=== PATIENT | female | born 1990 | race Caucasian/White ===

== ENCOUNTER 2018-08-29 19:06 | Emergency (ER) | payer OTHER ==
[~2018-08-29] VITALS: Ht 167.6 cm; Wt 86.2 kg
[2018-08-29] MEDS ORDERED: Xanax0.5 MG PO (20:06)
== END 2018-08-29 20:17 | disposition home or self-care (01) ==
LOC: ER 19:06
DX: F41.9 Anxiety disorder, unspecified (principal)
CPT/HCPCS: 99282

== ENCOUNTER 2019-05-08 15:29 | Emergency (ER) | payer OTHER ==
[~2019-05-08] VITALS: Ht 167.6 cm; Wt 90.7 kg
[~2019-05-08 15:29] MED LIST: Xanax0.5 MG PO
[2019-05-08] MEDS ORDERED: IBUP800 PO (16:12)
[2019-05-08] MEDS ORDERED: Robaxin-750750 MG PO (16:12)
[2019-05-08] MEDS ORDERED: LIDO700A20 TOP (16:12)
== END 2019-05-08 16:14 | disposition home or self-care (01) ==
LOC: ER 15:29
DX: G89.29 Other chronic pain (principal); M54.5 Low back pain; F17.200 Nicotine dependence, unspecified, uncomplicated
CPT/HCPCS: 99283

== ENCOUNTER 2020-03-27 10:33 | Emergency (ER) | payer OTHER ==
[~2020-03-27] VITALS: Ht 167.6 cm; Wt 108.9 kg
[~2020-03-27 10:33] MED LIST changes: +IBUP800 PO; +LIDO700A20 TOP; +Robaxin-750750 MG PO
== END 2020-03-27 13:57 | disposition left against medical advice (07) ==
LOC: ER 10:33
DX: Z53.21 Procedure and treatment not carried out due to patient leaving prior to being seen by health care provider (principal)

== ENCOUNTER → 2021-07-03 | Outpatient (CLI) | payer OTHER ==
[2021-07-05 14:11] LABS: HPV 16 Negative (Negative); HPV 18 Negative (Negative); HPV OTHER HR TYPES Negative (Negative)
== END ==
LOC: LAB SHORT 19:10 → LAB 19:10
PROVIDERS: Family Medicine
DX: Z01.419 Encounter for gynecological examination (general) (routine) without abnormal findings (principal)
CPT/HCPCS: 87624; G0123

== ENCOUNTER → 2022-04-30 | Outpatient (CLI) | payer OTHER | END | disposition home or self-care (01) | LOC: LAB SHORT 16:28 | DX: Z34.83 Encounter for supervision of other normal pregnancy, third trimester (principal); Z3A.36 36 weeks gestation of pregnancy | CPT/HCPCS: 87081; 87150 ==

== ENCOUNTER 2023-07-06 17:51 | Inpatient (IN) | payer OTHER ==
[~2023-07-06] VITALS: Ht 167.6 cm; Wt 131.8 kg
[2023-07-06] VITALS (10 sets, daily range): BP systolic 95–131; BP diastolic 46–87
[~2023-07-06 17:51] MED LIST changes: +Colace100 MG PO; +FAMO20 PO; +PRENATAL TABLE1 EAC2 PO; +UNISOM SLEEPMIN25 MG PO
[2023-07-06 18:52] LABS: Source, Urine Voided
[2023-07-06 19:00] LABS: BASOPHILS ABSOLUTE AUTO 0.04 K/mm3 (0.00-0.23); BASOPHILS PERCENT AUTO 0 % (0-2); EOSINOPHILS PERCENT AUTO 1 % (0-6); Hematocrit 37.3 % (33.0-51.0); Hemoglobin 12.6 g/dL (11.5-16.0); IMMATURE GRAN ABSOLUTE AUTO 0.08 K/mm3 (0.00-0.10); IMMATURE GRAN PERCENT AUTO 0 % (0-1); LYMPHOCYTES ABSOLUTE AUTO 2.43 K/mm3 (0.84-5.20); LYMPHOCYTES PERCENT AUTO 13 % (21-46); MONOCYTES ABSOLUTE AUTO 1.05 K/mm3 (0.16-1.47); MONOCYTES PERCENT AUTO 6 % (4-13); Mean Corpuscular HGB 27.8 pg (26.0-34.0); Mean Corpuscular HGB Conc 33.8 g/dL (31.5-36.5); Mean Corpuscular Volume 82 fL (80-100); Mean Platelet Volume 11.7 fL (9.1-12.4); NEUTROPHILS ABSOLUTE AUTO 14.37 K/mm3 (1.96-9.15); NEUTROPHILS PERCENT AUTO 80 % (41-73); Platelet Count 256 K/mm3 (150-400); RDW Coefficient Variation 13.3 % (11.7-14.2); RDW Standard Deviation 39.5 fL (35.1-46.3); Red Blood Cell Count 4.54 M/mm3 (3.80-5.20); White Blood Cell Count 18.07 K/mm3 (4.00-11.30)
[2023-07-06 19:01] LABS: Appearance, Urine Cloudy (Clear); Bilirubin, Urine Neg (Neg); Blood, Urine 5+ (Neg); Color, Urine Yellow (P-Yellow); Glucose Qualitative, Urine Neg (Neg); Ketones, Urine Neg (Neg); Leukocyte Esterase, Urine Neg (Neg); Nitrite, Urine Neg (Neg); Protein, Urine 3+ (Neg); Specific Gravity, Urine 1.025 (1.003-1.022); Urobilinogen, Urine NORM (Normal)
[2023-07-06 19:15] LABS: Bacteria Many /hpf; Mucus Light (0-Heavy); Red Blood Cells, Urine 25-50 /hpf (0-2); Squamous Epithelial Cells Mod /hpf (Few)
[2023-07-06 21:09] LABS: BASOPHILS ABSOLUTE AUTO 0.03 K/mm3 (0.00-0.23); BASOPHILS PERCENT AUTO 0 % (0-2); EOSINOPHILS ABSOLUTE AUTO 0.08 K/mm3 (0.00-0.68); EOSINOPHILS PERCENT AUTO 0 % (0-6); Hematocrit 36.4 % (33.0-51.0); Hemoglobin 12.1 g/dL (11.5-16.0); IMMATURE GRAN ABSOLUTE AUTO 0.09 K/mm3 (0.00-0.10); IMMATURE GRAN PERCENT AUTO 1 % (0-1); LYMPHOCYTES ABSOLUTE AUTO 2.91 K/mm3 (0.84-5.20); LYMPHOCYTES PERCENT AUTO 16 % (21-46); MONOCYTES ABSOLUTE AUTO 1.14 K/mm3 (0.16-1.47); MONOCYTES PERCENT AUTO 6 % (4-13); Mean Corpuscular HGB 27.8 pg (26.0-34.0); Mean Corpuscular HGB Conc 33.2 g/dL (31.5-36.5); Mean Corpuscular Volume 84 fL (80-100); Mean Platelet Volume 11.5 fL (9.1-12.4); NEUTROPHILS ABSOLUTE AUTO 13.81 K/mm3 (1.96-9.15); NEUTROPHILS PERCENT AUTO 77 % (41-73); Platelet Count 253 K/mm3 (150-400); RDW Coefficient Variation 13.3 % (11.7-14.2); RDW Standard Deviation 40.7 fL (35.1-46.3); Red Blood Cell Count 4.35 M/mm3 (3.80-5.20); White Blood Cell Count 18.06 K/mm3 (4.00-11.30)
--- NOTE | 2023-07-06 21:16 | NUR ---
07/06/232115 Carley Contreras PATIENT ARRIVED TO OR WITH GANNON CATHETER IN PLACE.
[2023-07-06 21:41] LABS: PCO2 Cord - Arterial 52.6 mmHg (40-50); pH Cord - Arterial 7.32 (7.28-7.35)
[2023-07-06 22:46] LABS: BASOPHILS ABSOLUTE AUTO 0.03 K/mm3 (0.00-0.23); BASOPHILS PERCENT AUTO 0 % (0-2); EOSINOPHILS ABSOLUTE AUTO 0.05 K/mm3 (0.00-0.68); EOSINOPHILS PERCENT AUTO 0 % (0-6); Hematocrit 35.4 % (33.0-51.0); Hemoglobin 11.4 g/dL (11.5-16.0); IMMATURE GRAN ABSOLUTE AUTO 0.12 K/mm3 (0.00-0.10); IMMATURE GRAN PERCENT AUTO 1 % (0-1); LYMPHOCYTES ABSOLUTE AUTO 2.07 K/mm3 (0.84-5.20); LYMPHOCYTES PERCENT AUTO 10 % (21-46); MONOCYTES ABSOLUTE AUTO 0.75 K/mm3 (0.16-1.47); MONOCYTES PERCENT AUTO 4 % (4-13); Mean Corpuscular HGB 27.3 pg (26.0-34.0); Mean Corpuscular HGB Conc 32.2 g/dL (31.5-36.5); Mean Corpuscular Volume 85 fL (80-100); Mean Platelet Volume 11.4 fL (9.1-12.4); NEUTROPHILS ABSOLUTE AUTO 17.74 K/mm3 (1.96-9.15); NEUTROPHILS PERCENT AUTO 86 % (41-73); Platelet Count 231 K/mm3 (150-400); RDW Coefficient Variation 13.4 % (11.7-14.2); RDW Standard Deviation 41.7 fL (35.1-46.3); Red Blood Cell Count 4.17 M/mm3 (3.80-5.20); White Blood Cell Count 20.76 K/mm3 (4.00-11.30)
[2023-07-07 05:51] VITALS: BP 103/58
[2023-07-07 06:10] LABS: BASOPHILS ABSOLUTE AUTO 0.03 K/mm3 (0.00-0.23); BASOPHILS PERCENT AUTO 0 % (0-2); EOSINOPHILS PERCENT AUTO 0 % (0-6); Hematocrit 28.6 % (33.0-51.0); Hemoglobin 9.4 g/dL (11.5-16.0); IMMATURE GRAN ABSOLUTE AUTO 0.13 K/mm3 (0.00-0.10); IMMATURE GRAN PERCENT AUTO 1 % (0-1); LYMPHOCYTES ABSOLUTE AUTO 1.77 K/mm3 (0.84-5.20); LYMPHOCYTES PERCENT AUTO 8 % (21-46); MONOCYTES ABSOLUTE AUTO 1.16 K/mm3 (0.16-1.47); MONOCYTES PERCENT AUTO 5 % (4-13); Mean Corpuscular HGB 27.5 pg (26.0-34.0); Mean Corpuscular HGB Conc 32.9 g/dL (31.5-36.5); Mean Corpuscular Volume 84 fL (80-100); Mean Platelet Volume 11.5 fL (9.1-12.4); NEUTROPHILS ABSOLUTE AUTO 18.94 K/mm3 (1.96-9.15); NEUTROPHILS PERCENT AUTO 86 % (41-73); Platelet Count 241 K/mm3 (150-400); RDW Coefficient Variation 13.6 % (11.7-14.2); RDW Standard Deviation 41.1 fL (35.1-46.3); Red Blood Cell Count 3.42 M/mm3 (3.80-5.20); White Blood Cell Count 22.03 K/mm3 (4.00-11.30)
[2023-07-07 07:01] VITALS: BP 121/61
--- NOTE | 2023-07-07 07:11 | NUR ---
PATIENT CHANGE: UPON WHEELING PATIENT BACK TO ROOM AFTER VISITING IN NURSERY, PATIENT STOOD UP AND STATED, "I AM REALLY DIZZY AND CAN'T HEAR." PATIENT WAS PROMPTLY ASSISTED BY THIS RN AND VISHNU GAGNON RN TO THE BED. PATIENT STATED SHE WAS FEELING NAUSEOUS AND WAS HANDED AN EMESIS BAG. PATIENT DID NOT VOMIT. WHEN PATIENT WAS FEELING LESS DIZZY SHE CONSENTED TO A PAD CHANGE. HER ABDOMINAL BINDER WAS REMOVED, PILO CARE WAS PERFORMED, AND PAD WAS CHANGED. THIS RN NOTICED SOME NEW BLEEDING ON THE LEFT SIDE OF HER DRESSING AND A LARGE BRUISED LOOKING BULGE BELOW THE DRESSING THAT HAD NOT BEEN PRESENT DURING OTHER DRESSING CHECKS. PATIENT HAS BEEN COMPLAINING OF "BURNING ACHE" AT INCISION SITE BUT DRESSING HAS BEEN C/D/I AT EVERY INSPECTION AFTER PATIENT MENTIONED THE SENSATION. DURING THIS INSPECTION THE PATIENT WINCED WHEN THE BULGE WAS PALPATED. FUNDUS IS FIRM AND MIDLINE AT THE UMBILICUS. [place] MATE RAD WAS ASKED TO HELP ASSESS PATIENT CHANGE AND IDALMIS Noel RN INSPECTED WITH THIS RN WELL SHE WAS COMING ON FOR DAY SHIFT. BEDSIDE REPORT GIVEN AND ALL OBSERVED THE BRUISED BULGE. DR. COLEMAN MADE AWARE.
--- NOTE | 2023-07-07 07:12 | NUR ---
CALLED TO BEDSIDE BY PRIMARY RN FOR CHANGE IN APPEARANCE OF THE PT'S ABD. PT HAS SWELLING AND BRUISING ABOVE AND BELOW INCISION WHICH IS TENDER TO PALPATION, BUT OTHERWISE NO SIGNIFICANT INCREASE IN PAIN. VSS. DR COLEMAN IS CONTACTED VIA PHONE AND UPDATED WITH FINDINGS. STATES MAY BE NORMAL BODY HABITUS FOR PT, BUT SHE WILL BE IN TO ASSESS.
--- NOTE | 2023-07-07 09:32 | NUR ---
07/07/23 0930 baby to room to breastfeed, Mom sitting semi fowlers with pain control a little better after taking po percocet.
[2023-07-07 11:48] VITALS: BP 117/58
--- NOTE | 2023-07-07 12:37 | NUR ---
07/07/23 1145 baby to room to breast feed, fed very well for 15 minutes with good latch. pt staying awake until her comes in a few minutes
[2023-07-07 15:40] VITALS: BP 117/58
[2023-07-07 19:40] VITALS: BP 115/60
[2023-07-08 00:15] VITALS: BP 122/68
[2023-07-08 03:55] VITALS: BP 121/65
--- NOTE | 2023-07-08 03:58 | NUR ---
PT CONTINUES TO HAVE BRUISING OVER THE PUBIS AND SOME EDEMA, NOT PITTING. APPEARS TO BE THE SAME AT THE BEGINNING OF THIS SHIFT. PT CONTINUES TO HAVE SOME PAIN WITH PALPATION. INCISION LOOKS IS WELL-APPROXIMATED, WITH SOME BRUISING UNDER STERI STRIPS.
[2023-07-08 08:02] LABS: BASOPHILS ABSOLUTE AUTO 0.03 K/mm3 (0.00-0.23); BASOPHILS PERCENT AUTO 0 % (0-2); EOSINOPHILS ABSOLUTE AUTO 0.22 K/mm3 (0.00-0.68); EOSINOPHILS PERCENT AUTO 2 % (0-6); Hematocrit 21.8 % (33.0-51.0); Hemoglobin 7.2 g/dL (11.5-16.0); IMMATURE GRAN ABSOLUTE AUTO 0.08 K/mm3 (0.00-0.10); IMMATURE GRAN PERCENT AUTO 1 % (0-1); LYMPHOCYTES ABSOLUTE AUTO 3.23 K/mm3 (0.84-5.20); LYMPHOCYTES PERCENT AUTO 22 % (21-46); MONOCYTES ABSOLUTE AUTO 0.98 K/mm3 (0.16-1.47); MONOCYTES PERCENT AUTO 7 % (4-13); Mean Corpuscular HGB 27.7 pg (26.0-34.0); Mean Corpuscular Volume 84 fL (80-100); Mean Platelet Volume 11.3 fL (9.1-12.4); NEUTROPHILS ABSOLUTE AUTO 9.85 K/mm3 (1.96-9.15); NEUTROPHILS PERCENT AUTO 69 % (41-73); Platelet Count 189 K/mm3 (150-400); RDW Coefficient Variation 13.8 % (11.7-14.2); RDW Standard Deviation 42.2 fL (35.1-46.3); White Blood Cell Count 14.39 K/mm3 (4.00-11.30)
[2023-07-08 08:11] VITALS: BP 129/61
--- NOTE | 2023-07-08 09:35 | NUR ---
Pt sleeping soundly, did not wake when RN into room, will assess when pt wakes up. Reported she only got about 15 minutes of sleep last night when pain meds given.
--- NOTE | 2023-07-08 10:15 | NUR ---
NB at breast well, pt will call when finished for assessment.
[2023-07-08 12:16] VITALS: BP 106/59
[2023-07-08] MEDS ORDERED: Percocet 5-3251 EACH PO (14:45)
[2023-07-08] MEDS ORDERED: IBUP800 PO (14:45)
--- NOTE | 2023-07-08 19:00 | NUR ---
Post and post discharge instructions reviewed w/pt and SO. Also had both observe incision and abd prior to discharge. Denied additional questions/concerns. IV d/c'd. ID tags matched w/nb and verification form. Marcelinogs tag d/c'd. Pt d/c'd home ambulatory to care of .
== END 2023-07-08 19:07 | disposition home or self-care (01) | DRG 788 ==
LOC: OBS 17:51 → BC 18:29
PROVIDERS: ADMIT Obstetrics & Gynecology
PROC: 4A033R1 Measurement of Arterial Saturation, Peripheral, Percutaneous Approach (ICD-10-PCS; 2023-07-06)
PROC: 10D00Z1 Extraction of Products of Conception, Low, Open Approach (ICD-10-PCS; principal; 2023-07-06 21:00)
DX: O45.93 Premature separation of placenta, unspecified, third trimester (principal); Z3A.36 36 weeks gestation of pregnancy; Z37.0 Single live birth; O90.81 Anemia of the puerperium; D64.9 Anemia, unspecified
CPT/HCPCS: 36415; 59025; 74018; 81001; 81003; 82803; 85025; 86850; 86900; 86901; 86923; 87081; 87086; 87150; A9270; J0690; J1100; J1885; J2371; J2405; J2590; J2704; J3010; J7050; J7120

== ENCOUNTER 2023-07-19 19:18 | Emergency (ER) | payer OTHER ==
[~2023-07-19] VITALS: Ht 167.6 cm; Wt 113.4 kg
[~2023-07-19 19:18] MED LIST changes: +Percocet 5-3251 EACH PO
[2023-07-19 19:50] LABS: BASOPHILS ABSOLUTE AUTO 0.03 K/mm3 (0.00-0.23); BASOPHILS PERCENT AUTO 0 % (0-2); EOSINOPHILS ABSOLUTE AUTO 0.27 K/mm3 (0.00-0.68); EOSINOPHILS PERCENT AUTO 2 % (0-6); Hematocrit 26.7 % (33.0-51.0); Hemoglobin 8.5 g/dL (11.5-16.0); IMMATURE GRAN ABSOLUTE AUTO 0.05 K/mm3 (0.00-0.10); IMMATURE GRAN PERCENT AUTO 0 % (0-1); LYMPHOCYTES ABSOLUTE AUTO 2.08 K/mm3 (0.84-5.20); LYMPHOCYTES PERCENT AUTO 18 % (21-46); MONOCYTES ABSOLUTE AUTO 0.61 K/mm3 (0.16-1.47); MONOCYTES PERCENT AUTO 5 % (4-13); Mean Corpuscular HGB 27.4 pg (26.0-34.0); Mean Corpuscular HGB Conc 31.8 g/dL (31.5-36.5); Mean Corpuscular Volume 86 fL (80-100); Mean Platelet Volume 10.6 fL (9.1-12.4); NEUTROPHILS PERCENT AUTO 74 % (41-73); Platelet Count 351 K/mm3 (150-400); RDW Coefficient Variation 14.5 % (11.7-14.2); RDW Standard Deviation 44.4 fL (35.1-46.3); White Blood Cell Count 11.84 K/mm3 (4.00-11.30)
[2023-07-19 20:08] LABS: Albumin, Blood 2.9 g/dL (3.4-5.0); Albumin/Globulin Ratio 0.7 (0.8-1.8); Bilirubin, Total 0.3 mg/dL (0.1-1.0); Bun/Creatinine Ratio 14.8 (12.0-20.0); Calcium, Blood 8.5 mg/dL (8.5-10.1); Creatinine, Blood 0.95 mg/dL (0.40-1.00); Globulin, Blood 4.2 g/dL (2.2-4.0); Potassium, Blood 3.8 mmol/L (3.5-5.5); Total Protein, Blood 7.1 g/dL (6.4-8.2)
[2023-07-19 21:49] VITALS: BP 123/81
== END 2023-07-19 21:48 | disposition home or self-care (01) ==
LOC: ER 19:18
PROVIDERS: Emergency Medicine
DX: O90.0 Disruption of cesarean delivery wound (principal); Z79.899 Other long term (current) drug therapy
CPT/HCPCS: 80053; 85025; 99283